=== PATIENT | female | born 1945 | race Caucasian/White ===

== ENCOUNTER 2017-05-07 19:16 | Emergency (ER) | payer MEDICARE, OTHER ==
[~2017-05-07] VITALS: Ht 162.6 cm; Wt 73.0 kg
[~2017-05-07 19:16] MED LIST: AMBI10TA PO; CYMB30CA PO; LEVO50TA4 PO; LORT5TAB PO; LOVA1TAB47 PO; REST15CA PO; ROPI1TAB72 PO; TIMO0.5S6 OU
[2017-05-07 19:17] VITALS: BP 196/115; PULSE 118; RESP 22; TEMP 99; O2SAT 98
[2017-05-07 19:54] VITALS: PULSE 99; RESP 22; O2SAT 97
--- NOTE | 2017-05-07 19:56 | PD ---
HPI Chief Complaint: Respiratory Symptoms Time Seen by Provider: 19:37 Travel History International Travel<30 days: No Contact w/Intl Traveler<30days: No Traveled to known affect area: No History of Present Illness HPI 71-year-old female presents to the emergency department for evaluation of shortness of breath, cough, wheezing that started today. She states she felt like it was coming on yesterday, but symptoms started today. She reports chills , but no documented fevers. She denies any chest pain. No abdominal pain. No vomiting, diarrhea. Patient reports history of asthma, arthritis, hypertension. She does report that she has had some bilateral ankle swelling for the past month that worsens with standing, goes down with elevation. She states she has an appointment with manager public, Dr. Felix, next month. Patient has used her albuterol inhaler today. No exacerbating or alleviating factors. Moderate severity. PFSH Past Medical History Asthma: Yes Diminished Hearing: No Past Surgical History Appendectomy: Yes Cholecystectomy: Yes Eye Surgery: Yes (BILAT CATARACTS) Hysterectomy: Yes Tonsillectomy: Yes Social History Alcohol Use: Yes (OCC) Tobacco Use: No Substance Use: No Allergies-Medications (Allergen,Severity, Reaction): Coded Allergies: pentazocine (Unverified Allergy, Mild, 05/07/17) Reported Meds & Prescriptions Reported Meds & Active Scripts Active Reported Meloxicam 7.5 Mg Tab 7.5 Mg PO DAILY Requip (Ropinirole) 1 Mg Tab 1 Mg PO ONCE Review of Systems Except as stated in HPI: all other systems reviewed are Neg Physical Exam Narrative GENERAL: Well-nourished, well-developed female patient, afebrile. SKIN: Focused skin assessment warm/dry. HEAD: Normocephalic. Atraumatic. EYES: No scleral icterus. No injection or drainage. NECK: Supple, trachea midline. No JVD or lymphadenopathy. CARDIOVASCULAR: Regular rate and rhythm without murmurs, gallops, or rubs. RESPIRATORY: Breath sounds equal bilaterally. No accessory muscle use. Lungs sounds with expiratory wheezes noted throughout. GASTROINTESTINAL: Abdomen soft, non-tender, nondistended. MUSCULOSKELETAL: No cyanosis. Bilateral 2+ lower extremity edema. BACK: Nontender without obvious deformity. No CVA tenderness. Data Data Last Documented VS Vital Signs Date Time Temp Pulse Resp B/P (MAP) Pulse Ox O2 Delivery O2 Flow Rate FiO2 05/07/17 21:43 110 16 172/82 (112) 98 Room Air 05/07/17 20:00 21 05/07/17 19:17 99.0 Orders Orders Complete Blood Count With Diff (05/07/17 19:51) Basic Metabolic Panel (Bmp) (05/07/17 19:51) B-Type Natriuretic Peptide (05/07/17 19:51) Act Partial Throm Time (Ptt) (05/07/17 19:51) Prothrombin Time / Inr (Pt) (05/07/17 19:51) Magnesium (Mg) (05/07/17 19:51) Ckmb (Isoenzyme) Profile (05/07/17 19:51) Troponin I (05/07/17 19:51) Influenzae A/B Antigen (05/07/17 19:51) Iv Access Insert/Monitor (05/07/17 19:51) Electrocardiogram (05/07/17 19:51) Ecg Monitoring (05/07/17 19:51) Oximetry (05/07/17 19:51) Oxygen Administration (05/07/17 19:51) Chest, Single Ap (05/07/17 19:51) Sodium Chloride 0.9% Flush (Ns Flush) (05/07/17 20:00) Methylprednisolone So Succ Inj (Solumedr (05/07/17 20:00) Albuterol-Ipratropium Neb (Duoneb Neb) (05/07/17 20:00) Labs Laboratory Tests Test 05/07/17 20:10 White Blood Count 7.8 TH/MM3 Red Blood Count 3.58 MIL/MM3 Hemoglobin 8.4 GM/DL Hematocrit 26.1 % Mean Corpuscular Volume 72.8 FL Mean Corpuscular Hemoglobin 23.6 PG Mean Corpuscular Hemoglobin Concent 32.4 % Red Cell Distribution Width 17.8 % Platelet Count 381 TH/MM3 Mean Platelet Volume 7.8 FL Neutrophils (%) (Auto) 71.9 % Lymphocytes (%) (Auto) 17.2 % Monocytes (%) (Auto) 7.6 % Eosinophils (%) (Auto) 2.6 % Basophils (%) (Auto) 0.7 % Neutrophils # (Auto) 5.6 TH/MM3 Lymphocytes # (Auto) 1.3 TH/MM3 Monocytes # (Auto) 0.6 TH/MM3 Eosinophils # (Auto) 0.2 TH/MM3 Basophils # (Auto) 0.1 TH/MM3 CBC Comment DIFF FINAL Differential Comment Prothrombin Time 10.5 SEC Prothromb Time International Ratio 1.0 RATIO Activated Partial Thromboplast Time 22.9 SEC Blood Urea Nitrogen 14 MG/DL Creatinine 0.83 MG/DL Random Glucose 94 MG/DL Calcium Level 8.8 MG/DL Magnesium Level 2.1 MG/DL Sodium Level 139 MEQ/L Potassium Level 3.9 MEQ/L Chloride Level 105 MEQ/L Carbon Dioxide Level 25.9 MEQ/L Anion Gap 8 MEQ/L Estimat Glomerular Filtration Rate 68 ML/MIN Total Creatine Kinase 98 U/L Troponin I LESS THAN 0.02 NG/ML B-Type Natriuretic Peptide 145 PG/ML MDM Medical Decision Making Medical Screen Exam Complete: Yes Emergency Medical Condition: Yes Medical Record Reviewed: Yes Interpretation(s) chest x-ray - CONCLUSION: Large hiatal hernia. Clear lungs. Differential Diagnosis Asthma exacerbation versus bronchitis versus pneumonia versus new onset CHF Narrative Course 71-year-old female presents to the emergency department for evaluation of cough , shortness breath, wheezing that started today. She does have history of asthma. EKG, CBC, BMP, BNP, magnesium, CK, troponin, PTT, PT/INR, and influenza are ordered and pending. Patient is given DuoNeb 3, Solu-Medrol 125 mg IV. Chest x-ray is ordered and pending. Patient was initially tachycardic in triage. Her HR came down to the 90's and then she became tachycardic again after duonebs. EKG shows sinus tachycardia, heart rate 110, no acute ST changes. CBC shows anemia of hemoglobin 8.4, hematocrit 26.1. BMP is unremarkable. BNP is 145. CK is 98. Troponin is less than 0.02. Magnesium is 2.1. Coags show no acute abnormality. Influenza is positive flu A. Chest x-ray shows large hiatal hernia. Clear lungs. I discussed the anemia with the patient. She denies any history of anemia. She denies any bleeding, dizziness, weakness, syncope. She will follow her primary care physician regarding this. Upon reexamination, patient states she is feeling much better. She is out of her albuterol inhaler home. She'll be discharged prescription for albuterol inhaler, Tamiflu, prednisone. She is encouraged to follow primary care physician. She is return here for any worsening symptoms. She verbalizes agreement and understanding. I discussed the case with my attending physician, Dr. Edwards, who agrees with plan and disposition. The patient was discharged in stable condition with instructions, including return instructions and follow up instructions. Diagnosis Primary Impression: Asthma exacerbation Qualified Codes: J45.21 - Mild intermittent asthma with (acute) exacerbation Additional Impression: Influenza A Referrals: Primary Care Physician call for appointment Patient Instructions: Asthma (ED), General Instructions, Influenza (ED) Additional Instructions: Take Tamiflu as directed until gone. Take prednisone as directed. Start this tomorrow. Use albuterol inhaler as directed as needed for shortness of breath/wheezing. Follow-up with your primary care physician. Return to the emergency department for any acute worsening of symptoms. Med/Other Pt SpecificInfo: Prescription(s) given Scripts Oseltamivir (Tamiflu) 75 Mg Cap 75 MG PO BID for Mgmt Viral Infection for 5 Days, #10 CAP 0 Refills Prov: Cherelle Villafana 05/07/17 Prednisone (Prednisone) 20 Mg Tab 40 MG PO DAILY for 5 Days, #10 TAB 0 Refills Take 40 mg (2 tablets) daily for 5 days Prov: Cherelle Villafana 05/07/17 Albuterol 18 GM Inh (Ventolin Hfa 18 GM Inh) 90 Mcg/Act Aer 2 PUFF INH Q4-6H Y for SHORTNESS OF BREATH, #1 INHALER 0 Refills Prov: Cherelle Villafana 05/07/17 Disposition: 01 DISCHARGE HOME Condition: Stable Cherelle Villafana May 07, 2017 19:56
[2017-05-07 20:00] VITALS: O2SAT 97
[2017-05-07] MEDS: RESP: ALBUTEROL 2.5 MG/IPRATROPIUM 0.5 MG NEB (SCH) INH (20:00)
[2017-05-07] MEDS ORDERED: methylPREDNISolone SOD SUCC 125 MG/2 ML VIAL IV PUSH ONE (20:00)
[2017-05-07] MEDS ORDERED: SODIUM CHLORIDE 0.9% FLUSH 10 ML FLUSH IVF PRN (20:00)
[2017-05-07] MEDS ORDERED: MELO7.5T27 PO (20:05)
[2017-05-07] MEDS ORDERED: ROPI1TAB72 PO (20:05)
--- NOTE | 2017-05-07 20:09 | RADRPT ---
EXAM DATE/TIME: 05/07/2017 19:54 [facility] COMPARISON: No previous studies available for comparison. INDICATIONS : Shortness of breath. MEDICAL HISTORY : Asthma. SURGICAL HISTORY : Left lower lung thoracotomy. ENCOUNTER: Initial ACUITY: 1 day PAIN SCORE: 0/10 LOCATION: Bilateral chest FINDINGS: A single view of the chest demonstrates the lungs to be symmetrically aerated without evidence of mas s, infiltrate or effusion. The cardiomediastinal contours are unremarkable. Osseous structures are intact. Retrocardiac density present, probably a large hiatal hernia. CONCLUSION: Large hiatal hernia. Clear lungs. Thien Meyer MD on May 07, 2017 at 20:05 Board Certified Radiologist. This report was verified electronically.
[2017-05-07 20:38] LABS: AUTOMATED NEUTROPHIL # 5.6 TH/MM3 (1.8-7.7); BASOPHIL # 0.1 TH/MM3 (0-0.2); BASOPHIL % 0.7 % (0.0-2.0); EOSINOPHIL # 0.2 TH/MM3 (0-0.4); EOSINOPHIL % 2.6 % (0.0-4.0); HEMATOCRIT 26.1 % (35.0-46.0); HEMOGLOBIN 8.4 GM/DL (11.6-15.3); LYMPH % 17.2 % (9.0-44.0); LYMPHOCYTE # 1.3 TH/MM3 (1.0-4.8); MEAN CELL VOLUME 72.8 FL (80.0-100.0); MEAN CORPUSCULAR HEMOGLOBIN 23.6 PG (27.0-34.0); MEAN CORPUSCULAR HGB CONC 32.4 % (32.0-36.0); MEAN PLATELET VOLUME 7.8 FL (7.0-11.0); MONO % 7.6 % (0.0-8.0); MONOCYTE # 0.6 TH/MM3 (0-0.9); NEUT % 71.9 % (16.0-70.0); PLATELET COUNT 381 TH/MM3 (150-450); RED BLOOD COUNT 3.58 MIL/MM3 (4.00-5.30); RED CELL DISTRIBUTION WIDTH 17.8 % (11.6-17.2); WHITE BLOOD COUNT 7.8 TH/MM3 (4.0-11.0)
[2017-05-07 20:50] LABS: BICARBONATE 25.9 MEQ/L (21.0-32.0); BLOOD UREA NITROGEN 14 MG/DL (7-18); CALCIUM 8.8 MG/DL (8.5-10.1); CHLORIDE 105 MEQ/L (98-107); CREATININE 0.83 MG/DL (0.50-1.00); GLOMERULAR FILTRATION RATE 68 ML/MIN (>89); GLUCOSE,RANDOM 94 MG/DL (74-106); MAGNESIUM 2.1 MG/DL (1.5-2.5); SODIUM (NA) 139 MEQ/L (136-145)
[2017-05-07 20:51] LABS: PROTHROMBIN TIME - PATIENT 10.5 SEC (9.8-11.6)
[2017-05-07 20:55] LABS: TROPONIN I LESS THAN 0.02 NG/ML (0.02-0.05)
[2017-05-07 21:43] VITALS: BP 172/82; PULSE 110; RESP 16; O2SAT 98
[2017-05-07] MEDS ORDERED: OSEL75 PO (22:04)
[2017-05-07] MEDS ORDERED: VENTAER INH (22:04)
[2017-05-07] MEDS ORDERED: PRED20 PO (22:04)
--- NOTE | 2017-05-08 17:18 | EKG ---
Date Performed: 05/07/2017 Time Performed: 20:20:06 PTAGE: 71 years EKG: SINUS TACHYCARDIA MARKED LEFT AXIS DEVIATION PATTERN CONSISTENT WITH PULMONARY DISEASE NONS PECIFIC T-WAVE ABNORMALITY ABNORMAL ECG NO PREVIOUS TRACING DOCTOR: Kenrick Cordova Interpretating Date/Time 05/08/2017 17:16:37
== END 2017-05-07 22:30 | disposition home or self-care (01) ==
LOC: NEPC 19:16
DX: J45.21 Mild intermittent asthma with (acute) exacerbation (principal); J09.X2 Influenza due to identified novel influenza A virus with other respiratory manifestations; D64.9 Anemia, unspecified; R00.0 Tachycardia, unspecified; R94.31 Abnormal electrocardiogram [ECG] [EKG]; R68.83 Chills (without fever); R22.43 Localized swelling, mass and lump, lower limb, bilateral; I10 Essential (primary) hypertension; M19.90 Unspecified osteoarthritis, unspecified site
CPT/HCPCS: 71045; 80048; 82550; 83735; 83880; 84484; 85025; 85610; 85730; 87804; 93005; 94640; 94664; 96374; 99285; J2930